=== PATIENT | male | born 1960 | race Hispanic/Latino ===

== ENCOUNTER 2017-08-14 08:16 | Day surgery (SDC) | payer MEDICARE ==
--- NOTE | 2017-08-14 07:54 | HP ---
DATE OF SURGERY: 08/14/2017 HISTORY OF PRESENT ILLNESS: The patient is a 57 year-old who had a brother pass away with colon cancer, change in bowel movements, increased diarrhea and bloody stools recently. No current abdominal pain. The last colonoscopy back in 2009 with several polyps. He has history of kidney stones in the past. He has history of hepatitis in the past. PAST MEDICAL HISTORY: Hypertension, reflux, gout, hypercholesterolemia as well as history of hepatitis. He has history of multiple tubular adenomas throughout the colon in 2009. PAST SURGICAL HISTORY: He had cholecystectomy in the past. MEDICATIONS: Includes metoprolol, ranitidine, tramadol, Tamsulosin, losartan, lovastatin hydrochlorothiazide, amlodipine. ALLERGIES: MORPHINE. FAMILY HISTORY: Hypertension, brittle bones, hard of hearing, kidney cancer. He had a brother pass away with colon cancer. SOCIAL HISTORY: No smoking or alcohol abuse. REVIEW OF SYSTEMS: Twelve systems reviewed. He does have some blood streaks when he wipes on occasion. No current abdominal pain. He did have changing bowel movements, increased diarrhea and runny stools recently. No chest pain or palpitations otherwise pertinent for as noted above per preadmission questionnaire. He did have upper endoscopy by Dr. Sequeira years ago. PHYSICAL EXAMINATION: GENERAL: No acute distress. HEENT: Sclerae nonicteric. NECK: No JVD. CHEST: Equal excursion, nonlabored breathing. CVS: Regular rate and rhythm. ABDOMEN: Soft. No peritoneal signs. EXTREMITIES: No edema. NEURO: Alert, moving extremities symmetrically. No gross motor deficits noted. RECTAL: Deferred timed to endoscopy exam. IMPRESSION: Family history of brother passing away with colon cancer, history of multiple polyps, change in bowel movements. He is in need of follow up colonoscopy. I feel he is a candidate. Risks and benefits explained in detail including but not limited to bleeding or infection, risk of bowel injury or perforation possibly requiring open procedure, risk of missed or nondiagnosis or incomplete exam possibly requiring barium enema, other studies or procedures, general risk of anesthesia or sedation, risk of bowel prep, postoperative risk of nausea or cramping but not limited to. He understands and agrees to the planned procedure and will proceed with outpatient colonoscopy. The patient had missed his last colonoscopy follow up as he was incarcerated at the time.
[2017-08-14] MEDS ORDERED: Ketamine HCl 50 MG/ML IV ONE (08:17)
[2017-08-14] MEDS ORDERED: DIPRIVAN 200 MG/20 ML IV ONE (08:17)
[2017-08-14] MEDS ORDERED: Sodium Chloride 0.9% 1000 ML 1,000 ML IV SCH (08:45)
[2017-08-14] MEDS ORDERED: Sodium Chloride 0.9% 1000 ML 1,000 ML ONE (08:53)
[2017-08-14] MEDS ORDERED: Sensorcaine 0.25% 10 ML ONE (09:01)
[2017-08-14] MEDS ORDERED: Lactated Ringers 1,000 ML IV ONE (09:01)
[2017-08-14 11:35] VITALS: BP 135/92; PULSE 56; O2SAT 96
--- NOTE | 2017-08-14 12:56 | OP ---
SURGERY DATE/TIME: 08/14/2017 1005 PREOPERATIVE DIAGNOSES: 1) Family history of colon cancer, personal history of polyps. 2) Change in bowel habits, increased loose stool. POSTOPERATIVE DIAGNOSES: 1) Fair bowel prep. 2) Multiple polyps. 3) Diverticulosis. 4) Internal and external hemorrhoids. PROCEDURES: 1) Colonoscopy to terminal ileum. 2) Rectrograde ileoscopy. 3) Random cold biopsy ileum. 4) Hot snare, hot biopsy multiple polyps ascending colon, transverse colon, descending colon, rectum as well as biopsy of raised lesion versus hyperplastic lesion proximal rectum. 5) Hot snare polypectomy distal rectal polyp at about 3 to 4 cm. SURGEON: Dr. Pedro Zee. ANESTHESIA: MAC. ESTIMATED BLOOD LOSS: Minimal. INDICATIONS: As noted above. Risks and benefits explained in detail but not limited to and consent obtained. DESCRIPTION OF PROCEDURE AND FINDINGS: The patient is taken to the operating room. MAC anesthesia introduced. After official time out and no disagreement with planned procedure, digital rectal exam did not reveal any large rectal masses. He did have some internal and external hemorrhoids. Video colonoscope inserted. He did have 4 to 5 mm polyp distal rectum that had a little bit of ooze to it. The scope was able to be passed up through the tortuous sigmoid, descending, transverse, ascending colon. With external pressure to terminal ileum up into the terminal ileum retrograde was performed and grossly unremarkable. Given this change in bowel habits cold biopsy taken of the ileum to evaluate for microscopic ileitis or other etiology of his symptoms. The scope was then carefully withdrawn. There were three or four small polyps in the proximal ascending colon removed with hot biopsy forceps with brief bursts of cautery and removed with hot snare. It was about 3 to 4 mm in size brief burst of cautery. Good hemostasis noted. A third one in mid ascending colon removed with hot biopsy forceps. The scope pulled back into the transverse colon and had some small early polyp removed with a combination of hot biopsy, hot snare polypectomy. Again in the descending colon some additional polyps removed with a combination of hot snare brief bursts of cautery, 3 to 4 mm polyp as well as other polyps removed with a combination of hot snare, hot biopsy forceps biopsied the smaller ones using the snare the 2 to 3 mm sized ones. He did have some mild diverticulosis. The scope pulled back to proximal rectum. He had vague almost patchy area of inflammation and raised lesions biopsied, hot biopsy forceps with brief bursts of cautery this was in the proximal rectum. There were a couple of questionable hyperplastic lesions removed with hot biopsy forceps also in the proximal rectum. In the distal rectum there was 4 to 5 mm polyp on a stalk this was removed with hot snare polypectomy with brief bursts of cautery. Good hemostasis noted. The scope was withdrawn. Otherwise he had some internal and external hemorrhoids. There were no signs of any large polyps, masses or obstructing lesions. The scope is withdrawn. The patient tolerated the procedure well. There were no immediate complications. There was no family available to discuss the findings with out in the waiting room. I will see him back in the office next week.
== END 2017-08-14 11:48 | disposition home or self-care (01) ==
LOC: SDC 08:16
PROVIDERS: ATTEND Surgery
DX: K63.5 Polyp of colon (principal); K57.90 Diverticulosis of intestine, part unspecified, without perforation or abscess without bleeding; K64.8 Other hemorrhoids; K64.4 Residual hemorrhoidal skin tags; Z86.010 Personal history of colon polyps; Z80.0 Family history of malignant neoplasm of digestive organs; Z87.442 Personal history of urinary calculi; K75.9 Inflammatory liver disease, unspecified; I10 Essential (primary) hypertension; K21.9 Gastro-esophageal reflux disease without esophagitis; M10.9 Gout, unspecified; E78.00 Pure hypercholesterolemia, unspecified; Z79.899 Other long term (current) drug therapy
CPT/HCPCS: 88305; J2704